=== PATIENT | male | born 1945 ===

== ENCOUNTER 2024-10-31 08:49 | Outpatient (CLI) | payer MEDICARE, SELFPAY ==
[2024-11-27 15:27] VITALS: BMI 36.5
--- NOTE | 2024-11-27 15:27 | P.SLEEP_ITS ---
Sleep Study Date of Study: 10/31/24 Ordering Provider: ROGERIO,BERNY Cheatham Interpreting Physician: Grisel Michael, DO Sleep Study Type: CPAP Titration Height: 1.93 m Weight: 136.078 kg Body Mass Index: 36.5 Neck Circumference (inches): 18 [place]: 13 Reason for Sleep Study Home sleep test on 10/24/2024 showed overall AHI of 43.5 with desaturation down to 83%. Sleep History The patient is a 79-year-old male with previously diagnosed sleep apnea that had a sleep study ordered by his ENT to determine optimal CPAP pressure settings. The patient rarely awakens from sleep short of breath. He denies awakening at night with heartburn, belching or cough. He frequently snores and is frequently loud enough that others complain. He occasionally has trouble sleeping when he has a cold. He denies waking up gasping for air throughout the night. He rarely has breathing problems at night observed by himself or others. He denies sweating excessively at night. He rarely has heart palpitations or irregular heartbeats during the night. He frequently falls asleep during the day but never while driving. He denies sleep paralysis, cataplexy and hypnagogic / hypnopompic hallucinations. He rarely feels afraid of going to sleep. He rarely has nightmares. He frequently remembers his dreams. He frequently has thoughts racing through his mind. He rarely feels sad, depressed or anxious. He denies having muscular tension. He rarely notices parts of his body jerk. He denies kicking during the night. He denies having crawling and aching feelings in his legs and denies having leg pain during the night. He frequently grinds his teeth during sleep but never awakens with morning jaw pain. He is rarely bothered by pain during the day but never awakened by pain during the night. He rarely wakes up feeling stiff in the morning. He rarely wakes up with sore or achy muscles. He rarely wakes up with pain in the neck, spine or other joints. He goes to bed at midnight on both weekdays and weekends. It takes him 15-30 minutes to fall asleep. He wakes up twice throughout the night for unknown reasons and is able to fall back asleep relatively shortly. He wakes up at 8:00 a.m. on both weekdays and weekends. He typically gets 6 hours of sleep per night. He will stay in bed for 45-60 minutes after waking up in the morning. He currently lives with his . He denies consuming any caffeinated beverages within 2 hours of bedtime. He denies engaging in physical exercise before bedtime. He will watch television before falling asleep. He will take naps in the afternoon or the evening and they are refreshing. He will occasionally have caffeinated tea during the day. He quit smoking cigarettes 50 years ago. He denies alcohol and recreational drug use. Sleep Procedure A full night CPAP Titration using the [employer] multi-channel system recorded the standard physiologic parameters including EEG, EOG, submentalis EMG, anterior tibialis EMG, EKG, body position, nasal and oral airflow using nasal pressure sensor and thermistor.? Respiratory parameters of chest and abdominal movements were recorded with Respiratory Inductance Plethysmography belts. Oxygen saturation was recorded by pulse oximetry. Video monitoring was also performed. Sleep stages, periodic limb movements, and EEG arousals were scored in 30 second epochs according to the criteria of the AASM Scoring Manual. The Apnea-Hypopnea Index was calculated using CMS guidelines for definition of hypopnea with 4% O2 desaturations while scoring respiratory events. Sleep Architecture The total recording time was 492.4 minutes.? The total sleep time was 422.0 minutes. Sleep latency was 15.6 minutes. REM latency was 69.5 minutes. Sleep efficiency was 85.7%. The patient had 51 awakenings for an awakening index of 7.3. Wake after Sleep Onset time was 54.5 minutes. The patient spent 83.0 minutes, 19.7% of total sleep time in Stage N1. The patient spent 280.0 minutes, 66.4% in Stage N2. The patient spent 0.5 minutes, 0.1% in Stage N3. The patient spent 58.5 minutes, 13.9% in Stage REM. Respiratory Analysis The patient had 37 hypopneas, 2 mixed apneas, and 1 central apnea for an overall Apnea Hypopnea Index of 5.7 events per hour. The REM Apnea Hypopnea Index was 18.5. The NREM Apnea Hypopnea Index was 3.6. The patient had a Central Apnea Hypopnea Index of 0.1. There was no evidence of Alexx-Matthews Respirations. The patient was started on CPAP 5 cm H2O and titrated to CPAP 17 cm H2O due to hypopneas. The patient was able to fall asleep starting on CPAP 5 cm H2O. The patient was able to achieve REM sleep starting on CPAP 7 cm H2O. The lowest residual AHI the patient was able to achieve with both NREM and REM sleep was 6.5. On CPAP 13 cm H2O, the patient spent 67.5 minutes in NREM and 15 minutes in REM with 9 hypopneas, resulting in an AHI of 6.5. The patient spent the majority of time in the right lateral position during this pressure. When he was titrated to 15 cm H2O and he switched into the supine position, he developed hypopneas. Arousals There were 150 total arousals for an arousal index of 21.3. There were 55 spontaneous arousals for an index of 7.8. ?There were 13 arousals due to respiratory events for an index of 1.8. There were 63 arousals due to periodic limb movements for an index of 9.0.? There were 20 arousals due to isolated limb movements for an index of 2.8. Periodic Limb Movements The patient had 25 isolated limb movements with an index of 3.6. The patient had 447 periodic limb movements with index of 63.6, which is elevated (normal < 15). Patient had a total of 472 limb movements with a total limb movement index of 67.1. Oximetry Data The patient had an average oxygen saturation of 94.6% in sleep with a minimum oxygen saturation of 85.0% and a maximum oxygen saturation of 98.0%. The patient had 48 oxygen desaturations that were 4% or greater resulting in an Oxygen Desaturation Index of 6.8.? The patient spent 2.4 minutes, 0.5% of total sleep time with an oxygen saturation below 88%. Snoring Profile Mild snoring was present intermittently in the beginning of the study. Cardiac Profile The EKG showed normal sinus rhythm. No arrhythmias or premature beats were seen. The patient had an average pulse rate of 54.6 bpm with a minimum pulse rate of 46.0 bpm and a maximum pulse rate of 68.0 bpm. ? EEG Profile No signs of seizure activity seen. Assessment and Plan Assessment and Plan (1) MATEO (obstructive sleep apnea): Code(s): G47.33 - Obstructive sleep apnea (adult) (pediatric) Status: Acute Assessment and Plan: The patient was previously diagnosed with MATEO and is on CPAP 14 cm H2O. Despite being complaint with CPAP, he has daytime hypersomnia. The patient was started on CPAP 5 cm H2O and titrated to CPAP 17 cm H2O due to hypopneas. As long as the patient remained in the lateral position, his sleep apnea fully resolved on CPAP 13 cm H2O. He was titrated to higher pressures after developing hypopneas in the supine position but there wasn't enough time on the final pressure to see if it would be an optimal pressure setting. I recommend that the patient's pressure setting remain at 14 cm H2O but make sure that the patient is using a chin strap along with his nasal mask due to mouth leak. I also recommend having the patient sleep in the lateral position for the majority of the night. He should consider tucking a wedge pillow or placing regular pillows behind his back while in the lateral position to keep him from rolling onto his back. If the patient insists on sleeping on his back,he will likely require BPAP therapy to resolve his sleep apnea in the supine position. This should be used with all episodes of sleep.? Compliance should be reviewed within 31-90 days of starting therapy for usage greater than 4 hours per night greater than 70% of the nights. The patient should be asked about symptoms such as?excessive daytime sleepiness, quality of sleep, decreased nocturia, increased?mental functioning such as memory, mood, and concentration. (2) PLMD (periodic limb movement disorder): Code(s): G47.61 - Periodic limb movement disorder Status: Acute Assessment and Plan: The patient had a significant number of limb movements during the study with the majority being periodic in nature. The patient's sleep history does not suggest Restless Leg Syndrome. I recommend that the patient have a serum ferritin drawn for evaluation of iron deficiency anemia. If the patient has a serum ferritin less than 75 ng/mL, I recommend starting a daily iron supplement and a Vitamin C supplement for better absorption. If the serum ferritin is greater than 75 ng/mL, I recommend starting a dopamine agonist and titrating the dose until symptoms resolve. There are nonpharmacological methods to treat limb movements including daily exercise, stretching calf muscles before bed, avoiding excessive amounts of caffeine and alcohol, vitamin B supplementation, magnesium lotion massaged into legs before bed, and use of a weighted blanket. Data The data obtained during this sleep study is adequate for interpretation. Certification This sleep study has been reviewed by a board certified sleep medicine physician.
== END 2024-11-01 06:59 | disposition home or self-care (01) ==
LOC: ANHCSM 08:51
PROVIDERS: Visit Provider Physician Assistant
DX: G47.33 Obstructive sleep apnea (adult) (pediatric) (principal)
CPT/HCPCS: 95811